=== PATIENT | male | born 1965 | race Caucasian/White ===

== ENCOUNTER 2018-07-25 11:01 | Emergency (ER) | payer BC, OTHER ==
--- NOTE | 2018-07-25 11:20 | EDM.PDOC ---
ED HPI GENERAL MEDICAL PROBLEM - General Stated Complaint: SWOLLEN NOSE AND EYE Time Seen by Provider: 07/25/18 11:01 Source of Information: Reports: Patient History Limitations: Reports: No Limitations - History of Present Illness INITIAL COMMENTS - FREE TEXT/NARRATIVE: 53 y.o.w.m came to the ed because he felt some swelling and pain ant his right nose and left and right forehead. No trauma. Pt stated, he noticed swelling of her right nose as well. No nasal congestion. No F/C no no N/V/D or dizziness. Pt feels sinus pressure. No other acute medical issues. LAKEISHA 151/107 RR 20 Pulse ox 97% 0n RA Temp 36.8 Pulse 82 Onset Date: 07/24/18 Onset Time: 08:00 Duration: Day(s):, Getting Worse, Intermittent Location: Reports: Face Quality: Reports: Ache, Dull, Pressure Severity: Mild Improves with: Reports: Rest Worsens with: Reports: Movement Context: Reports: Sick Contact Associated Symptoms: Reports: No Other Symptoms head Pain Score (Numeric/FACES): 6 - Related Data Allergies Allergy/AdvReac Type Severity Reaction Status Date / Time No Known Allergies Allergy Verified 07/27/15 14:22 Home Meds: Home Meds Acetaminophen [Pain Reliever] 1,000 mg PO ASDIRECTED PRN 01/09/15 [History] Allopurinol [Zyloprim] 100 mg PO DAILY 01/09/15 [History] Pantoprazole [ProTONIX] 40 mg PO BID 01/09/15 [History] Metoclopramide HCl [Reglan] 10 mg PO TIDMEALS #30 tablet 09/05/15 [Rx] NIFEdipine 20 mg PO DAILY #30 cap 09/05/15 [Rx] Amoxicillin/Potassium Clav [Augmentin 875-125 Tablet] 1 each PO BID #20 tablet 07/25/18 [Rx] Lisinopril 0 mg PO DAILY 07/25/18 [History] Past Medical History Other Gastrointestinal History: NEEDS GALLBLADDER OUT ED ROS ENT - Review of Systems Review Of Systems: See Below Constitutional: Reports: No Symptoms HEENT: Reports: Sinus Problem Respiratory: Reports: No Symptoms Cardiovascular: Reports: No Symptoms Endocrine: Reports: No Symptoms GI/Abdominal: Reports: No Symptoms : Reports: No Symptoms Musculoskeletal: Reports: No Symptoms Skin: Reports: No Symptoms Neurological: Reports: No Symptoms Psychiatric: Reports: No Symptoms Hematologic/Lymphatic: Reports: No Symptoms Immunologic: Reports: No Symptoms ED EXAM, ENT - Physical Exam Exam: See Below Exam Limited By: No Limitations General Appearance: Alert, WD/WN, Mild Distress Eye Exam: Bilateral Eye: Normal Inspection Ears: Normal External Exam, Normal Canal, Normal TMs Nose: Normal Inspection, Normal Mucousa, No Blood Mouth/Throat: Normal Gums, Normal Lips, Normal Oropharynx Head: Atraumatic, Normocephalic Neck: Normal Inspection, Supple, Non-Tender, Full Range of Motion Respiratory/Chest: No Respiratory Distress, Lungs Clear, Normal Breath Sounds, No Accessory Muscle Use, Chest Non-Tender Cardiovascular: Normal Peripheral Pulses, Regular Rate, Rhythm, No Edema, No Gallop, No JVD, No Murmur, No Rub GI/Abdominal: Normal Bowel Sounds, Soft, Non-Tender, No Organomegaly (Male) Exam: Deferred Rectal (Males) Exam: Deferred Back: Normal Inspection, Full Range of Motion Extremities: Normal Inspection, Normal Range of Motion, Non-Tender, No Pedal Edema, Normal Capillary Refill Neurological: Alert, Oriented, CN II-XII Intact Psychiatric: Normal Affect, Normal Mood Skin: Warm, Dry, Intact Lymphatic: No Adenopathy Course - Vital Signs Text/Narrative:: 53 y.o.w.m came to the ed because he felt some swelling and pain ant his right nose and left and right forehead. No trauma. Pt stated, he noticed swelling of her right nose as well. No nasal congestion. No F/C no no N/V/D or dizziness. Pt feels sinus pressure. No other acute medical issues. LAKEISHA 151/107 RR 20 Pulse ox 97% 0n RA Temp 36.8 Pulse 82 PE: 53 y.o.w.m with right facial swelling. Imaging: max facial: No Sinusitis Impression: Facial cellulitis Tx: Abx as a prescription Reexam: Improved Plan: D/C with instructions Last Recorded V/S: Last Vital Signs Temp 36.7 C 07/25/18 12:33 Pulse 70 07/25/18 12:33 Resp 20 07/25/18 12:33 BP 154/89 H 07/25/18 12:33 Pulse Ox 97 07/25/18 12:33 - Orders/Labs/Meds Orders: Active Orders 24 hr Category Date Time Status Max Facial Sinus wo Cont [CT] Stat Exams 07/25/18 11:14 Taken Departure - Departure Time of Disposition: 12:19 Disposition: Home, Self-Care 01 Condition: Good Clinical Impression: Cellulitis of face - Discharge Information Prescriptions: Amoxicillin/Potassium Clav [Augmentin 875-125 Tablet] 1 each PO BID #20 tablet Instructions: Amoxicillin; Clavulanic Acid tablets, Cellulitis, Adult Referrals: Kunal Goetz MD [Primary Care Provider] - Forms: ED Department Discharge Additional Instructions: Please tale Augmentin as recommended, please take tylenol/Motrin for pain, please f/u, come back if your symptoms get worse acutely - My Orders Last 24 Hours: My Active Orders 07/25/18 11:14 Max Facial Sinus wo Cont [CT] Stat - Assessment/Plan Last 24 Hours: My Active Orders 07/25/18 11:14 Max Facial Sinus wo Cont [CT] Stat
[2018-07-25 14:25] VITALS: BP 154/89
== END 2018-07-25 12:33 | disposition home or self-care (01) ==
LOC: FB.ED 11:01
DX: L03.211 Cellulitis of face (principal); Z79.899 Other long term (current) drug therapy
CPT/HCPCS: 70486; 99283

== ENCOUNTER 2019-05-08 09:57 | Emergency (ER) | payer BC, OTHER ==
[2019-05-08] MEDS ORDERED: Pantoprazole 40 MG Vial IVPUSH ONE (10:23)
[2019-05-08] MEDS ORDERED: Ondansetron 4 MG/2 ML SDV IVPUSH ONE (10:23)
[2019-05-08] MEDS ORDERED: Sodium Chloride 0.9% 1,000 ML IV ONE ×2 (10:23→11:41)
--- NOTE | 2019-05-08 10:27 | EDM.PDOC ---
ED HPI GENERAL MEDICAL PROBLEM - General Stated Complaint: VOMITTING DEHYDRATED Time Seen by Provider: 05/08/19 10:13 Source of Information: Reports: Patient History Limitations: Reports: No Limitations - History of Present Illness INITIAL COMMENTS - FREE TEXT/NARRATIVE: 54 y.o.w.m with a H/O chronic vomiting came to the ED due to vomiting in the past 2 days. Pt had an upper Endoscopy study a few years ago. Pt c/o gen abd discomfort, no pain. He takes omeprazole. Pt denies food poisoning. Pt was not able to keep water or even ice chips down. No SOB, No CP or any other acute med issues. BP 168/85 RR 22 Pulse ox 98% on RA Pulse 65 Temp 36.8 Onset Date: 05/06/19 Onset Time: 08:00 Duration: Day(s):, Getting Worse, Intermittent Location: Reports: Abdomen Quality: Reports: Burning Severity: Moderate Improves with: Reports: None Worsens with: Reports: Eating Context: Reports: Other Associated Symptoms: Reports: No Other Symptoms Headache Pain Score (Numeric/FACES): 7 abdomen Pain Score (Numeric/FACES): 7 - Related Data Allergies Allergy/AdvReac Type Severity Reaction Status Date / Time No Known Allergies Allergy Verified 05/08/19 10:07 Home Meds: Home Meds Allopurinol [Zyloprim] 100 mg PO DAILY 05/08/19 [History] Indomethacin 50 mg PO DAILY PRN 05/08/19 [History] Lisinopril/Hydrochlorothiazide [Lisinopril-Hctz 20-25 mg Tab] 1 each PO DAILY [History] Omeprazole 20 mg PO DAILY 05/08/19 [History] Ondansetron [Zofran ODT] 4 mg PO Q6H PRN #14 tab.dis 05/08/19 [Rx] Past Medical History Cardiovascular History: Reports: Hypertension Other Gastrointestinal History: NEEDS GALLBLADDER OUT Social & Family History - Family History Family Medical History: Noncontributory - Caffeine Use Caffeine Use: Reports: None ED ROS GENERAL - Review of Systems Review Of Systems: See Below Constitutional: Reports: No Symptoms HEENT: Reports: No Symptoms Respiratory: Reports: No Symptoms Cardiovascular: Reports: No Symptoms Endocrine: Reports: No Symptoms GI/Abdominal: Reports: Abdominal Pain (abd. discomfort) : Reports: No Symptoms Musculoskeletal: Reports: No Symptoms Skin: Reports: No Symptoms Neurological: Reports: No Symptoms Psychiatric: Reports: No Symptoms Hematologic/Lymphatic: Reports: No Symptoms Immunologic: Reports: No Symptoms ED EXAM, GI/ABD - Physical Exam Exam: See Below Exam Limited By: No Limitations General Appearance: Alert, WD/WN, Moderate Distress Eyes: Bilateral: Normal Appearance Ears: Normal External Exam Nose: Normal Inspection Throat/Mouth: Normal Lips, Normal Voice, No Airway Compromise, Other (dry mucosal membranes) Head: Atraumatic, Normocephalic Neck: Normal Inspection, Supple, Non-Tender, Full Range of Motion Respiratory/Chest: No Respiratory Distress, Lungs Clear, Normal Breath Sounds, Chest Non-Tender Cardiovascular: Normal Peripheral Pulses, Regular Rate, Rhythm, No Edema, No Gallop, No JVD, No Murmur GI/Abdominal Exam: Normal Bowel Sounds, Tender (epigatsric) (Male) Exam: Deferred Rectal (Males) Exam: Deferred Back Exam: Normal Inspection, Full Range of Motion Extremities: Normal Inspection, Normal Range of Motion, Non-Tender Neurological: Alert, Oriented, CN II-XII Intact, Normal Cognition, Normal Gait Psychiatric: Normal Affect, Normal Mood Skin Exam: Warm, Dry, Intact, Normal Color, No Rash Lymphatic: No Adenopathy Course - Vital Signs Text/Narrative:: 54 y.o.w.m with a H/O chronic vomiting came to the ED due to vomiting in the past 2 days. Pt had an upper Endoscopy study a few years ago. Pt c/o gen abd discomfort, no pain. He takes omeprazole. Pt denies food poisoning. Pt was not able to keep water or even ice chips down. No SOB, No CP or any other acute med issues. BP 168/85 RR 22 Pulse ox 98% on RA Pulse 65 Temp 36.8 PE: WNWD W M with N/V Labs: CBC nl BMP NL potassium was 3.5 Impression: Cyclic vs chronic Vomiting Tx: Zofran, NS, Protonix Reexam: Improved Plan: D/C with instructions Last Recorded V/S: Last Vital Signs Temp 36.6 C 05/08/19 13:45 Pulse 65 05/08/19 13:45 Resp 16 05/08/19 13:45 BP 145/70 H 05/08/19 13:45 Pulse Ox 98 05/08/19 13:45 - Orders/Labs/Meds Labs: Laboratory Tests 05/08/19 05/08/19 05/08/19 Range/Units 10:32 10:32 11:40 WBC 7.3 (4.5-12.0) X10-3/uL RBC 5.09 (4.30-5.75) x10(6)uL Hgb 15.8 (13.5-17.8) g/dL Hct 44.9 (30.0-51.3) % MCV 88.2 (80-96) fL MCH 31.0 (27.7-33.6) pg MCHC 35.1 (32.2-35.4) g/dL RDW 11.5 (11.5-15.5) % Plt Count 255 (125-369) X10(3)uL MPV 9.7 (7.4-10.4) fL Neut % (Auto) 56.1 (46-82) % Lymph % (Auto) 32.1 (13-37) % [place] % (Auto) 11.0 (4-12) % Eos % (Auto) 0 L (1.0-5.0) % Baso % (Auto) 1 (0-2) % Neut # (Auto) 4.1 (1.6-8.3) # Lymph # (Auto) 2.4 (0.6-5.0) # [place] # (Auto) 0.8 (0.0-1.3) # Eos # (Auto) 0.0 (0.0-0.8) # Baso # (Auto) 0.0 (0.0-0.2) # Sodium 143 (135-145) mmol/L Potassium 3.5 (3.5-5.3) mmol/L Chloride 105 (100-110) mmol/L Carbon Dioxide 31 (21-32) mmol/L BUN 14 (7-18) mg/dL Creatinine 1.0 (0.70-1.30) mg/dL Est Cr Clr Drug Dosing 89.22 mL/min Estimated GFR (MDRD) > 60 (>60) BUN/Creatinine Ratio 14.0 (9-20) Glucose 121 H (80-116) mg/dL Calcium 9.6 (8.6-10.2) mg/dL Total Bilirubin 1.2 (0.1-1.3) mg/dL Direct Bilirubin 0.30 H (0.10-0.20) mg/dL AST 37 H (5-25) IU/L ALT 66 H (12-36) U/L Alkaline Phosphatase 69 (56-112) IU/L Total Protein 7.8 (6.0-8.0) g/dL Albumin 4.1 (3.5-5.2) g/dL Amylase 35 (25-115) U/L Urine Color Yellow (YELLOW) Urine Appearance Clear (CLEAR) Urine pH 5.0 (5.0-6.5) Ur Specific [place] 1.025 (1.010-1.025) Urine Protein Trace (NEGATIVE) mg/dL Urine Glucose (UA) Normal (NORMAL) mg/dL Urine Ketones 15 H (NEGATIVE) mg/dL Urine Occult Blood Negative (NEGATIVE) Urine Nitrite Negative (NEGATIVE) Urine Bilirubin Small H (NEGATIVE) Urine Urobilinogen 4 H (NEGATIVE) mg/dL Ur Leukocyte Esterase Negative (NEGATIVE) Urine RBC 0-5 (0-5) Urine WBC 0-5 (0-5) Ur Squamous Epith Cells Occasional (NS,R,O) Urine Bacteria Moderate H (NS) Urine Mucus Many H (NS) Meds: Medications Discontinued Medications Generic Name Dose Route Start Last Admin Trade Name Freq PRN Reason Stop Dose Admin Sodium Chloride 1,000 mls @ 999 mls/hr 05/08/19 10:23 05/08/19 10:35 Normal Saline IV 05/08/19 11:23 999 mls/hr .BOLUS ONE Administration Promethazine HCl 12.5 mg/ 50.5 mls @ 200 mls/hr 05/08/19 11:39 05/08/19 12:05 Sodium Chloride IV 05/08/19 11:54 200 mls/hr ONETIME STA Administration Sodium Chloride 1,000 mls @ 999 mls/hr 05/08/19 11:41 05/08/19 11:40 Normal Saline IV 05/08/19 12:41 999 mls/hr .BOLUS ONE Administration Ondansetron HCl 8 mg 05/08/19 10:23 05/08/19 10:43 Zofran IVPUSH 05/08/19 10:24 8 mg ONETIME ONE Administration Pantoprazole Sodium 40 mg 05/08/19 10:23 05/08/19 10:44 Protonix Iv IVPUSH 05/08/19 10:24 40 mg ONETIME ONE Administration Departure - Departure Time of Disposition: 13:38 Disposition: Home, Self-Care 01 Condition: Good Clinical Impression: Dehydration Vomiting alone Qualifiers: Vomiting type: unspecified Vomiting Intractability: non-intractable Qualified Code(s): R11.11 - Vomiting without nausea - Discharge Information Prescriptions: Ondansetron [Zofran ODT] 4 mg PO Q6H PRN #14 tab.dis PRN Reason: Nausea Instructions: Nausea and Vomiting, Adult Referrals: Kunal Goetz MD [Primary Care Provider] - Forms: ED Department Discharge Additional Instructions: Please advance diet as tolerated. Please increase water intake, please take Zofran and cont your Omeprazole. Please F/U with your PMD/GI specialist, come back if your symptoms get worse acutely
[2019-05-08] MEDS ORDERED: Promethazine 12.5 MG in Sodium Chloride 0.9% 50 ML IV STA (11:39)
[2019-05-08 14:01] VITALS: BP 145/70
== END 2019-05-08 13:50 | disposition home or self-care (01) ==
LOC: FB.ED 09:57
DX: E86.0 Dehydration (principal); R11.11 Vomiting without nausea; I10 Essential (primary) hypertension; Z79.899 Other long term (current) drug therapy
CPT/HCPCS: 36415; 80048; 80076; 81001; 82150; 85025; 96361; 96374; 96375; 99284; C9113; J2405; J2550; J7030; J7050

== ENCOUNTER 2019-05-09 15:01 | Observation (INO) | payer BC ==
[2019-05-09] MEDS ORDERED: Sodium Chloride 0.9% 10 ML Syringe FLUSH PRN (16:08)
[2019-05-09] MEDS ORDERED: Ondansetron 4 MG/2 ML SDV IV PRN (16:08)
[2019-05-09] MEDS ORDERED: Enoxaparin 40 MG/0.4 ML Syringe SUBCUT SCH (16:15)
[2019-05-09] MEDS ORDERED: Sodium Chloride 0.9% 1,000 ML IV SCH (16:15)
--- NOTE | 2019-05-09 16:39 | PCM.HP ---
<Dulce Lehman - Last Filed: 05/09/19 16:34> H&P History of Present Illness - General Date of Service: 05/09/19 Admit Problem/Dx: Admission Diagnosis/Problem Admission Diagnosis/Problem Dehydration - History of Present Illness Initial Comments - Free Text/Narative: 54 year old male presents to the hospital for direct admission following vomiting. He reports that two weeks ago he woke up in the morning and had some vomiting. He had been drinking vodka the night before so he attributed the vomiting to this. It resolved by noon and he was able to eat and drink normally afterwards. This past Thursday (05/07/19) he again woke up and became vomiting whenever he tried to eat or drink anything. He had some alcoholic beverages the night before so thought it was related to that again. However, he has been unable to keep any food or liquids down since that time. He reports that even if he drinks water, he feels like everything goes down normally, but that he is unable to keep it in and immediately vomits it out. He does note that this has happened in the past. He was evaluated by surgery last time and had a aditi fundoplication in October 2015. This resolved his symptoms until two weeks ago. Onset of Symptoms: Reports: Sudden Symptom Onset Date: 05/07/19 Duration of Symptoms: Reports: Day(s): (3), Constant Location: Reports: Abdomen Front/Back Full Body Diagram: 1 - pain Quality: Reports: Pressure Severity: Moderate Improves with: Reports: Other (not eating or drinking) Worsens with: Reports: Eating Associated Symptoms: Reports: Nausea/Vomiting (with PO intake only). Denies: Chest Pain, Cough, Fever/Chills, Rash, Shortness of Breath, Weakness Headache Pain Score (Numeric/FACES): 6 - Related Data Allergies/Adverse Reactions: Allergies Allergy/AdvReac Type Severity Reaction Status Date / Time No Known Allergies Allergy Verified 05/09/19 16:34 Home Medications: Home Meds Allopurinol [Zyloprim] 100 mg PO DAILY 05/08/19 [History] Indomethacin 50 mg PO TID PRN 05/08/19 [History] Lisinopril/Hydrochlorothiazide [Lisinopril-Hctz 20-25 mg Tab] 1 each PO DAILY [History] Omeprazole 20 mg PO BID 05/08/19 [History] Ondansetron [Zofran ODT] 4 mg PO Q6H PRN #14 tab.dis 05/08/19 [Rx] Acetaminophen [Tylenol Extra Strength] 1,000 mg PO Q4HR PRN 05/09/19 [History] Past Medical History HEENT History: Reports: Impaired Vision, Other (See Below) Other HEENT History: wears reading glasses Cardiovascular History: Reports: Hypertension Other Gastrointestinal History: NEEDS GALLBLADDER OUT Musculoskeletal History: Reports: Arthritis, Back Pain, Chronic, Gout - Infectious Disease History Infectious Disease History: Reports: Chicken Pox, Mumps - Past Surgical History GI Surgical History: Reports: Cholecystectomy Musculoskeletal Surgical History: Reports: Arthroscopic Knee Social & Family History - Family History Family Medical History: Noncontributory - Tobacco Use Smoking Status *Q: Never Smoker Second Hand Smoke Exposure: No - Caffeine Use Caffeine Use: Reports: Soda - Alcohol Use Days Per Week of Alcohol Use: 3 Number of Drinks Per Day: 4 Total Drinks Per Week: 12 Date of Last Drink: 05/04/19 Time of Last Drink: 18:00 - Recreational Drug Use Recreational Drug Use: No H&P Review of Systems - Review of Systems: Review Of Systems: See Below General: Reports: Fatigue, Decreased Appetite, Weight Loss. Denies: Fever, Chills, Weakness HEENT: Reports: No Symptoms Pulmonary: Denies: Shortness of Breath, Cough Cardiovascular: Denies: Chest Pain, Palpitations Gastrointestinal: Reports: Abdominal Pain (epi-gastric) Genitourinary: Denies: Hematuria Musculoskeletal: Denies: No Symptoms Skin: Denies: No Symptoms Psychiatric: Denies: No Symptoms Neurological: Denies: No Symptoms Hematologic/Lymphatic: Denies: No Symptoms Exam - Exam Exam: See Below - Vital Signs Vital Signs: Last Vital Signs Temp 37.0 C 05/09/19 15:05 Pulse 67 05/09/19 15:05 Resp 18 05/09/19 15:05 BP 173/84 H 05/09/19 15:05 Pulse Ox 96 05/09/19 15:05 Weight: 253 lb - Exam General: Alert, Oriented, Cooperative HEENT: Hearing Intact Neck: Supple, Trachea Midline Lungs: Clear to Auscultation, Normal Respiratory Effort Cardiovascular: Regular Rate, Regular Rhythm GI/Abdominal Exam: Normal Bowel Sounds, Soft, No Mass, Tender ([id number]) Back Exam: Normal Inspection Extremities: No Pedal Edema Skin: Warm, Dry, Intact Neuro Extensive - Mental Status: Alert, Oriented x3, Normal Mood/Affect Psychiatric: Alert, Normal Affect, Normal Mood - Problem List (1) Dehydration SNOMED Code(s): 13753195 ICD Code: E86.0 - DEHYDRATION Status: Acute (2) Chronic vomiting SNOMED Code(s): 61492100 ICD Code: R11.10 - VOMITING, UNSPECIFIED Status: Acute (3) Weight loss, non-intentional SNOMED Code(s): 185002387 ICD Code: R63.4 - ABNORMAL WEIGHT LOSS Status: Acute (4) Vomiting alone SNOMED Code(s): 607772881872497 ICD Code: R11.11 - VOMITING WITHOUT NAUSEA Status: Acute Qualifiers: Vomiting type: unspecified Vomiting Intractability: non-intractable Qualified Code(s): R11.11 - Vomiting without nausea Problem List Initiated/Reviewed/Updated: Yes Orders Last 24hrs: Active Orders 24 hr Category Date Time Status Patient Status [ADT] Routine ADT 05/09/19 16:08 Active Oxygen Therapy [RC] PRN Care 05/09/19 16:08 Active Up ad Anneliese [RC] ASDIRECTED Care 05/09/19 16:08 Active VTE/DVT Education [RC] Per Unit Routine Care 05/09/19 16:08 Active Vital Signs [RC] Q4H Care 05/09/19 16:08 Active Nothing per Oral Now Diet [DIET] Diet 05/09/19 Dinner Active CBC WITH AUTO DIFF [HEME] Routine Lab 05/09/19 16:08 Ordered COMPREHENSIVE METABOLIC PN,CMP [CHEM] Routine Lab 05/09/19 16:08 Ordered Enoxaparin [Lovenox] Med 05/09/19 16:15 Active 40 mg SUBCUT Q24H Ondansetron [Zofran] Med 05/09/19 16:08 Active 4 mg IV Q4H PRN Sodium Chloride 0.9% [Normal Saline] 1,000 ml Med 05/09/19 16:15 Active IV ASDIRECTED Sodium Chloride 0.9% [Saline Flush] Med 05/09/19 16:08 Active 10 ml FLUSH ASDIRECTED PRN Peripheral IV Insertion Adult [OM.PC] Routine Oth 05/09/19 16:08 Ordered Sequential Compression Device [OM.PC] Per Unit Routine Oth 05/09/19 16:09 Ordered Resuscitation Status Routine Resus Stat 05/09/19 16:08 Ordered Medication Orders Enoxaparin Sodium (Lovenox) 40 mg SUBCUT Q24H MEGHA Sodium Chloride (Normal Saline) 1,000 mls @ 150 mls/hr IV ASDIRECTED MEGHA Ondansetron HCl (Zofran) 4 mg IV Q4H PRN PRN Reason: Nausea/Vomiting Sodium Chloride (Saline Flush) 10 ml FLUSH ASDIRECTED PRN PRN Reason: Keep Vein Open Assessment/Plan Comment:: 1. Observation status 2. NPO 3. IVF - NS @ 150 cc/hr 4. Esophagram with Gastrografin 5. Up ad anneliese 6. CBC and CMP now 7. Consult Dr. Weinberg 8. DVT prophylaxis with Lovenox and SCDs <Carlos Archuleta - Last Filed: 05/09/19 17:35> H&P History of Present Illness - General Admit Problem/Dx: Admission Diagnosis/Problem Admission Diagnosis/Problem Dehydration Exam - Vital Signs Vital Signs: Last Vital Signs Temp 98.6 F 05/09/19 16:08 Pulse 67 05/09/19 16:08 Resp 18 05/09/19 16:08 BP 173/84 H 05/09/19 16:08 Pulse Ox 97 05/09/19 16:08 - Patient Data Lab Results Last 24 hrs: Laboratory Results - last 24 hr 05/09/19 05/09/19 Range/Units 16:37 16:37 WBC 9.6 (4.5-12.0) X10-3/uL RBC 4.74 (4.30-5.75) x10(6)uL Hgb 13.9 (13.5-17.8) g/dL Hct 41.7 (30.0-51.3) % MCV 87.9 (80-96) fL MCH 29.3 (27.7-33.6) pg MCHC 33.3 (32.2-35.4) g/dL RDW 11.5 (11.5-15.5) % Plt Count 234 (125-369) X10(3)uL MPV 9.3 (7.4-10.4) fL Neut % (Auto) 66.2 (46-82) % Lymph % (Auto) 24.1 (13-37) % [place] % (Auto) 9.0 (4-12) % Eos % (Auto) 0 L (1.0-5.0) % Baso % (Auto) 1 (0-2) % Neut # (Auto) 6.4 (1.6-8.3) # Lymph # (Auto) 2.3 (0.6-5.0) # [place] # (Auto) 0.9 (0.0-1.3) # Eos # (Auto) 0.0 (0.0-0.8) # Baso # (Auto) 0.0 (0.0-0.2) # Sodium 145 (135-145) mmol/L Potassium 3.3 L (3.5-5.3) mmol/L Chloride 106 (100-110) mmol/L Carbon Dioxide 28 (21-32) mmol/L BUN 13 (7-18) mg/dL Creatinine 1.0 (0.70-1.30) mg/dL Est Cr Clr Drug Dosing 89.22 mL/min Estimated GFR (MDRD) > 60 (>60) BUN/Creatinine Ratio 13.0 (9-20) Glucose 103 (80-116) mg/dL Calcium 9.1 (8.6-10.2) mg/dL Total Bilirubin 0.9 (0.1-1.3) mg/dL AST 30 H D (5-25) IU/L ALT 55 H D (12-36) U/L Alkaline Phosphatase 60 (56-112) IU/L Total Protein 7.4 (6.0-8.0) g/dL Albumin 3.8 (3.5-5.2) g/dL Globulin 3.6 g/dL Albumin/Globulin Ratio 1.1 Result Diagrams: 05/09/19 16:37 05/09/19 16:37 Orders Last 24hrs: Active Orders 24 hr Category Date Time Status Patient Status [ADT] Routine ADT 05/09/19 16:08 Active Notify Provider Consults [RC] ASDIRECTED Care 05/09/19 17:19 Active Oxygen Therapy [RC] PRN Care 05/09/19 16:08 Active Up ad Anneliese [RC] ASDIRECTED Care 05/09/19 16:08 Active VTE/DVT Education [RC] Per Unit Routine Care 05/09/19 16:08 Active Vital Signs [RC] Q4H Care 05/09/19 16:08 Active Consult to Physician [CONS] Routine Cons 05/09/19 17:18 Ordered Nothing per Oral Now Diet [DIET] Diet 05/09/19 Dinner Active Enoxaparin [Lovenox] Med 05/09/19 16:15 Active 40 mg SUBCUT Q24H Labetalol [Normodyne] Med 05/09/19 17:31 Ordered 10 mg IVPUSH Q4H PRN Ondansetron [Zofran] Med 05/09/19 16:08 Active 4 mg IV Q4H PRN Sodium Chloride 0.9% [Normal Saline] 1,000 ml Med 05/09/19 16:15 Active IV ASDIRECTED Sodium Chloride 0.9% [Saline Flush] Med 05/09/19 16:08 Active 10 ml FLUSH ASDIRECTED PRN Peripheral IV Insertion Adult [OM.PC] Routine Oth 05/09/19 16:08 Ordered Sequential Compression Device [OM.PC] Per Unit Routine Oth 05/09/19 16:09 Ordered Resuscitation Status Routine Resus Stat 05/09/19 16:08 Ordered Medication Orders Enoxaparin Sodium (Lovenox) 40 mg SUBCUT Q24H MEGHA Last Admin: 05/09/19 17:14 Dose: 40 mg Sodium Chloride (Normal Saline) 1,000 mls @ 150 mls/hr IV ASDIRECTED MEGHA Last Admin: 05/09/19 16:56 Dose: 150 mls/hr Labetalol HCl (Normodyne) 10 mg IVPUSH Q4H PRN; Protocol PRN Reason: Hypertension Ondansetron HCl (Zofran) 4 mg IV Q4H PRN PRN Reason: Nausea/Vomiting Sodium Chloride (Saline Flush) 10 ml FLUSH ASDIRECTED PRN PRN Reason: Keep Vein Open Last Admin: 05/09/19 16:54 Dose: 10 ml Assessment/Plan Comment:: Reviewed the note and saw the patient and examined the patient. Agree and attest to this note.
[2019-05-09] MEDS ORDERED: Sodium Chloride 0.9% 1,000 ML IV ONE (17:37)
[2019-05-09] MEDS: Labetalol 100 MG/20 ML MDV IVPUSH PRN (18:12)
[2019-05-09] MEDS: NS + KCl 20mEq/L 1,000 ML IV SCH (19:49)
[2019-05-10] MEDS: NS + KCl 20mEq/L 1,000 ML IV SCH (02:36)
[2019-05-10] MEDS ORDERED: Lactated Ringers 1,000 ML IV ONE (07:31)
--- NOTE | 2019-05-10 07:37 | PCM.CONS ---
H&P History of Present Illness - General Date of Service: 05/10/19 Admit Problem/Dx: Admission Diagnosis/Problem Admission Diagnosis/Problem Dehydration Source of Information: Patient, Old Records - History of Present Illness Initial Comments - Free Text/Narative: 54 yo wm who developed some emesis over the weekend. Unable to keep fluids and solids down. Was seen in the ED and given fluids and admitted after being seen in the clinic. He has a hx of achalasia and has had a Heller myotomy as well as a Janel fundoplication approx 3.5 yrs ago in [place]. This was done for similar sx. Did well until this past week end. Denies fever, chills. He is able to handle his saliva. No exacerbating or relieving factors. Headache Pain Score (Numeric/FACES): 3 - Related Data Allergies/Adverse Reactions: Allergies Allergy/AdvReac Type Severity Reaction Status Date / Time No Known Allergies Allergy Verified 05/09/19 16:34 Home Medications: Home Meds Allopurinol [Zyloprim] 100 mg PO DAILY 05/08/19 [History] Indomethacin 50 mg PO TID PRN 05/08/19 [History] Lisinopril/Hydrochlorothiazide [Lisinopril-Hctz 20-25 mg Tab] 1 each PO DAILY [History] Omeprazole 20 mg PO BID 05/08/19 [History] Ondansetron [Zofran ODT] 4 mg PO Q6H PRN #14 tab.dis 05/08/19 [Rx] Acetaminophen [Tylenol Extra Strength] 1,000 mg PO Q4HR PRN 05/09/19 [History] Past Medical History HEENT History: Reports: Impaired Vision, Other (See Below) Other HEENT History: wears reading glasses Cardiovascular History: Reports: Hypertension Other Gastrointestinal History: NEEDS GALLBLADDER OUT Musculoskeletal History: Reports: Arthritis, Back Pain, Chronic, Gout - Infectious Disease History Infectious Disease History: Reports: Chicken Pox, Mumps - Past Surgical History GI Surgical History: Reports: Cholecystectomy Musculoskeletal Surgical History: Reports: Arthroscopic Knee Social & Family History - Family History Family Medical History: Noncontributory - Tobacco Use Smoking Status *Q: Never Smoker Second Hand Smoke Exposure: No - Caffeine Use Caffeine Use: Reports: Soda - Alcohol Use Days Per Week of Alcohol Use: 3 Number of Drinks Per Day: 4 Total Drinks Per Week: 12 Date of Last Drink: 05/04/19 Time of Last Drink: 18:00 - Recreational Drug Use Recreational Drug Use: No H&P Review of Systems - Review of Systems: Review Of Systems: See Below General: Reports: No Symptoms HEENT: Reports: No Symptoms Pulmonary: Reports: No Symptoms Cardiovascular: Reports: No Symptoms Gastrointestinal: Reports: Vomiting. Denies: Abdominal Pain Genitourinary: Reports: Other (dark urine) Exam - Exam Exam: See Below - Vital Signs Vital Signs: Last Vital Signs Temp 98 F 05/10/19 05:24 Pulse 67 05/10/19 05:24 Resp 16 05/10/19 05:24 BP 158/84 H 05/10/19 05:24 Pulse Ox 96 05/10/19 05:24 Weight: 114.759 kg - Exam General: Alert, Oriented. No: Mild Distress Lungs: Clear to Auscultation, Normal Respiratory Effort Cardiovascular: Regular Rate, Regular Rhythm GI/Abdominal Exam: Normal Bowel Sounds, Soft, Non-Tender - Patient Data Lab Results Last 24 hrs: Laboratory Results - last 24 hr 05/09/19 05/09/19 Range/Units 16:37 16:37 WBC 9.6 (4.5-12.0) X10-3/uL RBC 4.74 (4.30-5.75) x10(6)uL Hgb 13.9 (13.5-17.8) g/dL Hct 41.7 (30.0-51.3) % MCV 87.9 (80-96) fL MCH 29.3 (27.7-33.6) pg MCHC 33.3 (32.2-35.4) g/dL RDW 11.5 (11.5-15.5) % Plt Count 234 (125-369) X10(3)uL MPV 9.3 (7.4-10.4) fL Neut % (Auto) 66.2 (46-82) % Lymph % (Auto) 24.1 (13-37) % [place] % (Auto) 9.0 (4-12) % Eos % (Auto) 0 L (1.0-5.0) % Baso % (Auto) 1 (0-2) % Neut # (Auto) 6.4 (1.6-8.3) # Lymph # (Auto) 2.3 (0.6-5.0) # [place] # (Auto) 0.9 (0.0-1.3) # Eos # (Auto) 0.0 (0.0-0.8) # Baso # (Auto) 0.0 (0.0-0.2) # Sodium 145 (135-145) mmol/L Potassium 3.3 L (3.5-5.3) mmol/L Chloride 106 (100-110) mmol/L Carbon Dioxide 28 (21-32) mmol/L BUN 13 (7-18) mg/dL Creatinine 1.0 (0.70-1.30) mg/dL Est Cr Clr Drug Dosing 89.22 mL/min Estimated GFR (MDRD) > 60 (>60) BUN/Creatinine Ratio 13.0 (9-20) Glucose 103 (80-116) mg/dL Calcium 9.1 (8.6-10.2) mg/dL Total Bilirubin 0.9 (0.1-1.3) mg/dL AST 30 H D (5-25) IU/L ALT 55 H D (12-36) U/L Alkaline Phosphatase 60 (56-112) IU/L Total Protein 7.4 (6.0-8.0) g/dL Albumin 3.8 (3.5-5.2) g/dL Globulin 3.6 g/dL Albumin/Globulin Ratio 1.1 Result Diagrams: 05/09/19 16:37 05/09/19 16:37 Consult PN Assessment/Plan Procedures: Procedures ASSAY OF AMYLASE (07/23/15) ASSAY OF MAGNESIUM (09/04/15) ASSAY OF PHOSPHORUS (09/04/15) COMPLETE CBC AUTOMATED (07/23/15) COMPLETE CBC W/AUTO DIFF WBC (09/04/15) COMPREHEN METABOLIC PANEL (09/04/15) CONTRAST X-RAY ESOPHAGUS (04/30/15) CT MAXILLOFACIAL W/O DYE (07/25/18) EGD BIOPSY SINGLE/MULTIPLE (01/10/15) EGD DIAGNOSTIC BRUSH WASH (05/15/15) EGD GUIDE WIRE INSERTION (05/08/15) EMERGENCY DEPT VISIT (07/25/18) EMERGENCY DEPT VISIT (07/27/15) EMERGENCY DEPT VISIT (07/23/15) EMERGENCY DEPT VISIT (07/23/15) EMERGENCY DEPT VISIT (07/11/15) EMERGENCY DEPT VISIT (07/11/15) HEPATIC FUNCTION PANEL (07/23/15) HEPATOBIL SYST IMAGE W/DRUG (06/26/15) HYDRATE IV INFUSION ADD-ON (09/04/15) HYDRATION IV INFUSION INIT (07/11/15) IMMUNOHISTO ANTB 1ST STAIN (01/10/15) METABOLIC PANEL TOTAL CA (07/23/15) ROUTINE VENIPUNCTURE (09/04/15) THER/PROPH/DIAG INJ IV PUSH (09/04/15) THER/PROPH/DIAG IV INF INIT (07/23/15) TISSUE EXAM BY PATHOLOGIST (01/10/15) TX/PRO/DX INJ NEW DRUG ADDON (07/23/15) TX/PRO/DX INJ SAME DRUG 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 would recommend CT scan to eval to see if anything has slipped. will follow with you.
--- NOTE | 2019-05-10 08:22 | PCM.PN ---
<Dulce Lehman - Last Filed: 05/10/19 08:17> - General Info Date of Service: 05/10/19 Admission Dx/Problem (Free Text): Patient doing well, does have a headache this morning and complains of being hungry. He remains NPO, no episodes of nausea or vomiting since admission. No acute events overnight. Functional Status: Reports: Pain Controlled, Ambulating. Denies: New Symptoms - Review of Systems General: Denies: Fever, Weakness, Night Sweats HEENT: Reports: Headaches (frontal, better with cold cloth). Denies: Visual Changes Pulmonary: Denies: Shortness of Breath, Cough Cardiovascular: Denies: Chest Pain, Palpitations Gastrointestinal: Denies: Abdominal Pain, Constipation, Diarrhea, Nausea, Vomiting Genitourinary: Denies: Dysuria, Hematuria Skin: Reports: No Symptoms - Patient Data Vitals - Most Recent: Last Vital Signs Temp 36.6 C 05/10/19 05:24 Pulse 67 05/10/19 05:24 Resp 16 05/10/19 05:24 BP 158/84 H 05/10/19 05:24 Pulse Ox 96 05/10/19 05:24 Weight - Most Recent: 253 lb I&O - Last 24 Hours: Intake & Output 05/09/19 05/10/19 05/10/19 22:59 06:59 14:59 Intake Total 990 1389 Output Total 700 Balance 990 689 Lab Results Last 24 Hours: Laboratory Results - last 24 hr 05/09/19 05/09/19 Range/Units 16:37 16:37 WBC 9.6 (4.5-12.0) X10-3/uL RBC 4.74 (4.30-5.75) x10(6)uL Hgb 13.9 (13.5-17.8) g/dL Hct 41.7 (30.0-51.3) % MCV 87.9 (80-96) fL MCH 29.3 (27.7-33.6) pg MCHC 33.3 (32.2-35.4) g/dL RDW 11.5 (11.5-15.5) % Plt Count 234 (125-369) X10(3)uL MPV 9.3 (7.4-10.4) fL Neut % (Auto) 66.2 (46-82) % Lymph % (Auto) 24.1 (13-37) % [place] % (Auto) 9.0 (4-12) % Eos % (Auto) 0 L (1.0-5.0) % Baso % (Auto) 1 (0-2) % Neut # (Auto) 6.4 (1.6-8.3) # Lymph # (Auto) 2.3 (0.6-5.0) # [place] # (Auto) 0.9 (0.0-1.3) # Eos # (Auto) 0.0 (0.0-0.8) # Baso # (Auto) 0.0 (0.0-0.2) # Sodium 145 (135-145) mmol/L Potassium 3.3 L (3.5-5.3) mmol/L Chloride 106 (100-110) mmol/L Carbon Dioxide 28 (21-32) mmol/L BUN 13 (7-18) mg/dL Creatinine 1.0 (0.70-1.30) mg/dL Est Cr Clr Drug Dosing 89.22 mL/min Estimated GFR (MDRD) > 60 (>60) BUN/Creatinine Ratio 13.0 (9-20) Glucose 103 (80-116) mg/dL Calcium 9.1 (8.6-10.2) mg/dL Total Bilirubin 0.9 (0.1-1.3) mg/dL AST 30 H D (5-25) IU/L ALT 55 H D (12-36) U/L Alkaline Phosphatase 60 (56-112) IU/L Total Protein 7.4 (6.0-8.0) g/dL Albumin 3.8 (3.5-5.2) g/dL Globulin 3.6 g/dL Albumin/Globulin Ratio 1.1 Med Orders - Current: Current Medications Enoxaparin Sodium (Lovenox) 40 mg SUBCUT Q24H [facility] Last Admin: 05/09/19 17:14 Dose: 40 mg Potassium Chloride/Sodium Chloride (Normal Saline With 20 Meq Kcl) 1,000 mls @ 150 mls/hr IV ASDIRECTED [facility] Last Admin: 05/10/19 02:36 Dose: 150 mls/hr Lactated Ringer's (Ringers, Lactated) 1,000 mls @ 999 mls/hr IV BOLUS ONE Stop: 05/10/19 08:31 Labetalol HCl (Normodyne) 10 mg IVPUSH Q4H PRN; Protocol PRN Reason: Hypertension Last Admin: 05/09/19 18:12 Dose: 10 mg Ondansetron HCl (Zofran) 4 mg IV Q4H PRN PRN Reason: Nausea/Vomiting Sodium Chloride (Saline Flush) 10 ml FLUSH ASDIRECTED PRN PRN Reason: Keep Vein Open Last Admin: 05/09/19 16:54 Dose: 10 ml Discontinued Medications Sodium Chloride (Normal Saline) 1,000 mls @ 150 mls/hr IV ASDIRECTED [facility] Last Admin: 05/09/19 16:56 Dose: 150 mls/hr Sodium Chloride (Normal Saline) 1,000 mls @ 500 mls/hr IV .BOLUS ONE Stop: 05/09/19 19:36 Last Admin: 05/09/19 17:51 Dose: 500 mls/hr - Exam General: Alert, Oriented, Cooperative, No Acute Distress HEENT: No: Scleral Icterus Lungs: Clear to Auscultation, Normal Respiratory Effort Cardiovascular: Regular Rate, Regular Rhythm GI/Abdominal Exam: Normal Bowel Sounds, Soft, Non-Tender, Distended Extremities: No Pedal Edema Skin: Warm, Dry, Intact Psy/Mental Status: Alert, Normal Affect, Normal Mood - Problem List & Annotations (1) Dehydration SNOMED Code(s): 08115119 Code(s): E86.0 - DEHYDRATION Status: Acute Current Visit: No (2) Chronic vomiting SNOMED Code(s): 63911455 Code(s): R11.10 - VOMITING, UNSPECIFIED Status: Acute Current Visit: No (3) Weight loss, non-intentional SNOMED Code(s): 898743758 Code(s): R63.4 - ABNORMAL WEIGHT LOSS Status: Acute Current Visit: No (4) Vomiting alone SNOMED Code(s): 379429351859742 Code(s): R11.11 - VOMITING WITHOUT NAUSEA Status: Acute Current Visit: No Qualifiers: Vomiting type: unspecified Vomiting Intractability: non-intractable Qualified Code(s): R11.11 - Vomiting without nausea (5) Hypokalemia SNOMED Code(s): 05424507 Code(s): E87.6 - HYPOKALEMIA Status: Acute Current Visit: Yes (6) Achalasia of esophagus SNOMED Code(s): 65202757 Code(s): K22.0 - ACHALASIA OF CARDIA Status: Acute Current Visit: Yes (7) Elevated liver enzymes SNOMED Code(s): 910448813 Code(s): R74.8 - ABNORMAL LEVELS OF OTHER SERUM ENZYMES Status: Acute Current Visit: Yes - Problem List Review Problem List Initiated/Reviewed/Updated: Yes - Plan Plan:: 1. Repeat CMP 2. CT abdomen/CXR per Dr. Weinberg's note 3. Continue with NPO, IVF 4. Up ad anneliese <Carlos Archuleta - Last Filed: 05/10/19 08:27> - Patient Data Vitals - Most Recent: Last Vital Signs Temp 98 F 05/10/19 05:24 Pulse 67 05/10/19 05:24 Resp 16 05/10/19 05:24 BP 158/84 H 05/10/19 05:24 Pulse Ox 96 05/10/19 05:24 I&O - Last 24 Hours: Intake & Output 05/09/19 05/10/19 05/10/19 22:59 06:59 14:59 Intake Total 990 1389 Output Total 700 Balance 990 689 Lab Results Last 24 Hours: Laboratory Results - last 24 hr 05/09/19 05/09/19 Range/Units 16:37 16:37 WBC 9.6 (4.5-12.0) X10-3/uL RBC 4.74 (4.30-5.75) x10(6)uL Hgb 13.9 (13.5-17.8) g/dL Hct 41.7 (30.0-51.3) % MCV 87.9 (80-96) fL MCH 29.3 (27.7-33.6) pg MCHC 33.3 (32.2-35.4) g/dL RDW 11.5 (11.5-15.5) % Plt Count 234 (125-369) X10(3)uL MPV 9.3 (7.4-10.4) fL Neut % (Auto) 66.2 (46-82) % Lymph % (Auto) 24.1 (13-37) % [place] % (Auto) 9.0 (4-12) % Eos % (Auto) 0 L (1.0-5.0) % Baso % (Auto) 1 (0-2) % Neut # (Auto) 6.4 (1.6-8.3) # Lymph # (Auto) 2.3 (0.6-5.0) # [place] # (Auto) 0.9 (0.0-1.3) # Eos # (Auto) 0.0 (0.0-0.8) # Baso # (Auto) 0.0 (0.0-0.2) # Sodium 145 (135-145) mmol/L Potassium 3.3 L (3.5-5.3) mmol/L Chloride 106 (100-110) mmol/L Carbon Dioxide 28 (21-32) mmol/L BUN 13 (7-18) mg/dL Creatinine 1.0 (0.70-1.30) mg/dL Est Cr Clr Drug Dosing 89.22 mL/min Estimated GFR (MDRD) > 60 (>60) BUN/Creatinine Ratio 13.0 (9-20) Glucose 103 (80-116) mg/dL Calcium 9.1 (8.6-10.2) mg/dL Total Bilirubin 0.9 (0.1-1.3) mg/dL AST 30 H D (5-25) IU/L ALT 55 H D (12-36) U/L Alkaline Phosphatase 60 (56-112) IU/L Total Protein 7.4 (6.0-8.0) g/dL Albumin 3.8 (3.5-5.2) g/dL Globulin 3.6 g/dL Albumin/Globulin Ratio 1.1 Med Orders - Current: Current Medications Enoxaparin Sodium (Lovenox) 40 mg SUBCUT Q24H [facility] Last Admin: 05/09/19 17:14 Dose: 40 mg Potassium Chloride/Sodium Chloride (Normal Saline With 20 Meq Kcl) 1,000 mls @ 150 mls/hr IV ASDIRECTED [facility] Last Admin: 05/10/19 02:36 Dose: 150 mls/hr Lactated Ringer's (Ringers, Lactated) 1,000 mls @ 999 mls/hr IV BOLUS ONE Stop: 05/10/19 08:31 Labetalol HCl (Normodyne) 10 mg IVPUSH Q4H PRN; Protocol PRN Reason: Hypertension Last Admin: 05/09/19 18:12 Dose: 10 mg Ondansetron HCl (Zofran) 4 mg IV Q4H PRN PRN Reason: Nausea/Vomiting Sodium Chloride (Saline Flush) 10 ml FLUSH ASDIRECTED PRN PRN Reason: Keep Vein Open Last Admin: 05/09/19 16:54 Dose: 10 ml Discontinued Medications Sodium Chloride (Normal Saline) 1,000 mls @ 150 mls/hr IV ASDIRECTED [facility] Last Admin: 05/09/19 16:56 Dose: 150 mls/hr Sodium Chloride (Normal Saline) 1,000 mls @ 500 mls/hr IV .BOLUS ONE Stop: 05/09/19 19:36 Last Admin: 05/09/19 17:51 Dose: 500 mls/hr - My Orders Last 24 Hours: My Active Orders 05/09/19 16:08 Patient Status [ADT] Routine Oxygen Therapy [RC] PRN Up ad Anneliese [RC] ASDIRECTED VTE/DVT Education [RC] Per Unit Routine Vital Signs [RC] Q4H Ondansetron [Zofran] 4 mg IV Q4H PRN Sodium Chloride 0.9% [Saline Flush] 10 ml FLUSH ASDIRECTED PRN Peripheral IV Insertion Adult [OM.PC] Routine Resuscitation Status Routine 05/09/19 16:09 Sequential Compression Device [OM.PC] Per Unit Routine 05/09/19 16:15 Enoxaparin [Lovenox] 40 mg SUBCUT Q24H 05/09/19 17:18 Consult to Physician [CONS] Routine 05/09/19 17:19 Notify Provider Consults [RC] ASDIRECTED 05/09/19 17:31 Labetalol [Normodyne] 10 mg IVPUSH Q4H PRN 05/09/19 19:30 NS + KCl 20mEq/L [Normal Saline with 20 mEq KCl] 1,000 ml IV ASDIRECTED 05/09/19 Dinner Nothing per Oral Now Diet [DIET] 05/10/19 07:25 COMPREHENSIVE METABOLIC PN,CMP [CHEM] Routine - Plan Plan:: I attest I saw this patient and agree with plan and note.
[2019-05-10] MEDS ORDERED: Zolpidem 5 MG Tab PO PRN (09:18)
[2019-05-10] MEDS ORDERED: Pantoprazole 40 MG Vial IVPUSH SCH (09:30)
[2019-05-10] MEDS ORDERED: NS + KCl 20mEq/L 1,000 ML IV SCH (10:00)
--- NOTE | 2019-05-10 10:46 | CT ---
INDICATION: Vomiting, history of surgery for hernia. CT CHEST WITHOUT CONTRAST: Spiral 3.75 mm axial sections were obtained through the chest with sagittal and coronal reconstructions, 05/10/19 - no comparisons. Total exam DLP = 1,196.55 mGy-cm. A moderate sized calcified nodule was noted in the lower pole of the left lobe of the thyroid. Minimal aortic calcifications and brachiocephalic calcifications are noted. Very minimal coronary artery calcifications are seen - the heart is not enlarged. No pericardial effusion was seen. A moderate sized fixed hiatal hernia is suggested with solid material lying within it - probable food bolus. There is a clip noted at the inferior aspect of the hiatal hernia. The wall of the stomach is difficult to assess, since it is not distended. There is gas and some fluid in the stomach, gas in the more distal bowel, along with some probable liquid stool in the colon visualized. Renal cortical scarring is suggested. Fatty liver is noted. Adrenal glands appear to be intact. No definite pancreatic mass was seen. The spleen was unremarkable. A definite active infiltrate or effusion was not identified. In the right upper lobe at the level of the aortic arch, there is a 57 mm maximum diameter oval air-containing thin-walled cystic structure, which may represent a previous abscess site. With the thinness of the wall, the possibility of neoplasia is felt to be remote but possible. No other lesions were identified - no definite active infiltrate or effusion was seen. Mediastinal lymphadenopathy is mild and nonspecific. No mediastinal masses were identified. IMPRESSION: 1. 57 mm cavitary cystic structure in the right upper lobe, most likely the sequelae of previous infection but should be correlated clinically. 2. ASD/ASHD. 3. Fatty liver. 4. Post cholecystectomy. 5. Renal cortical scarring. 6. Moderate sized fixed hiatal hernia, which includes solid material - probable food bolus within it-cannot exclude a partially obstructive process. Report was called to Dr. Weinbegr at 0945 hours on 05/10/19. MTDD
[2019-05-10 11:25] VITALS: BP 162/87
[2019-05-10] MEDS: Labetalol 100 MG/20 ML MDV IVPUSH PRN (11:32)
--- NOTE | 2019-05-10 11:56 | PCM.DCSUM1 ---
Discharge Summary - Hospital Course Free Text/Narrative:: Hospital course-patient was admitted potassium slightly low and liver functions slightly elevated. He was given IV fluids including a bolus. Overnight he had 700 mL out. He was evaluated by our surgeon Dr. Weinberg. We were not able to get a barium swallow with Gastrografin until [address] scan was done that showed hiatal hernia for food. His previous surgeries Dr. Weinberg felt that he should be transferred to [place]. I discussed care with [place] and Dr. Weinberg excepts him. Patient's been nothing by mouth and will use some Protonix for his heartburn. He does have history of hypertension and we are some labetalol when necessary for blood pressure greater than 160/90. He will transfer himself bicarb is I believe he is medically stable. We'll saline lock IV and he 'll remain nothing by mouth. Brief History: 54 year old male presents to the hospital for direct admission following vomiting. He reports that two weeks ago he woke up in the morning and had some vomiting. He had been drinking vodka the night before so he attributed the vomiting to this. It resolved by noon and he was able to eat and drink normally afterwards. This past Thursday (05/07/19) he again woke up and became vomiting whenever he tried to eat or drink anything. He had some alcoholic beverages the night before so thought it was related to that again. However, he has been unable to keep any food or liquids down since that time. He reports that even if he drinks water, he feels like everything goes down normally, but that he is unable to keep it in and immediately vomits it out. He does note that this has happened in the past. He was evaluated by surgery last time and had a aditi fundoplication in October 2015. This resolved his symptoms until two weeks ago. Diagnosis: Stroke: No - Discharge Data Discharge Date: 05/10/19 Discharge Disposition: Home, Self-Care 01 Condition: Good - Discharge Diagnosis/Problem(s) (1) GERD (gastroesophageal reflux disease) SNOMED Code(s): 220977422 ICD Code: K21.9 - GASTRO-ESOPHAGEAL REFLUX DISEASE WITHOUT ESOPHAGITIS Status: Acute Current Visit: Yes - Patient Summary/Data Consults: Consultations 05/09/19 17:18 Consult to Physician [CONS] Routine Consulting Provider: Jim Weinberg Courtesy Call Completed to Consulting Physician: Yes Reason for Consult: Not able to eat ot drink - Patient Instructions Diet: NPO Activity: As Tolerated Driving: May Drive Today Showering/Bathing: May Shower Other/Special Instructions: 1. Transfer to [facility] by patient's own vehicle. 2. When he leaves saline lock IV. 3. Nothing by mouth. 4. Dr. Weinberg receiving. - Discharge Plan Home Medications: Home Meds Allopurinol [Zyloprim] 100 mg PO DAILY 05/08/19 [History] Indomethacin 50 mg PO TID PRN 05/08/19 [History] Lisinopril/Hydrochlorothiazide [Lisinopril-Hctz 20-25 mg Tab] 1 each PO DAILY [History] Omeprazole 20 mg PO DAILY 05/08/19 [History] Ondansetron [Zofran ODT] 4 mg PO Q6H PRN #14 tab.dis 05/08/19 [Rx] Acetaminophen [Tylenol Extra Strength] 1,000 mg PO Q4H PRN 05/09/19 [History] Enoxaparin [Lovenox] 40 mg SUBCUT Q24H syringe 05/10/19 [Rx] Omeprazole 20 mg PO DAILY PRN 05/10/19 [History] Patient Handouts: Laparoscopic Aditi Fundoplication, Care After, Laparoscopic Aditi Fundoplication - Discharge Summary/Plan Comment DC Time >30 min.: No - Patient Data Vitals - Most Recent: Last Vital Signs Temp 98.1 F 05/10/19 11:15 Pulse 52 L 05/10/19 11:15 Resp 18 05/10/19 11:15 BP 162/87 H 05/10/19 11:15 Pulse Ox 98 05/10/19 11:15 Weight - Most Recent: 253 lb I&O - Last 24 hours: Intake & Output 05/09/19 05/10/19 05/10/19 22:59 06:59 14:59 Intake Total 990 1389 Output Total 700 300 Balance 990 689 -300 Lab Results - Last 24 hrs: Laboratory Results - last 24 hr 05/09/19 05/09/19 05/10/19 Range/Units 16:37 16:37 10:55 WBC 9.6 (4.5-12.0) X10-3/uL RBC 4.74 (4.30-5.75) x10(6)uL Hgb 13.9 (13.5-17.8) g/dL Hct 41.7 (30.0-51.3) % MCV 87.9 (80-96) fL MCH 29.3 (27.7-33.6) pg MCHC 33.3 (32.2-35.4) g/dL RDW 11.5 (11.5-15.5) % Plt Count 234 (125-369) X10(3)uL MPV 9.3 (7.4-10.4) fL Neut % (Auto) 66.2 (46-82) % Lymph % (Auto) 24.1 (13-37) % [place] % (Auto) 9.0 (4-12) % Eos % (Auto) 0 L (1.0-5.0) % Baso % (Auto) 1 (0-2) % Neut # (Auto) 6.4 (1.6-8.3) # Lymph # (Auto) 2.3 (0.6-5.0) # [place] # (Auto) 0.9 (0.0-1.3) # Eos # (Auto) 0.0 (0.0-0.8) # Baso # (Auto) 0.0 (0.0-0.2) # Sodium 145 145 (135-145) mmol/L Potassium 3.3 L 3.8 (3.5-5.3) mmol/L Chloride 106 108 (100-110) mmol/L Carbon Dioxide 28 27 (21-32) mmol/L BUN 13 10 (7-18) mg/dL Creatinine 1.0 0.9 (0.70-1.30) mg/dL Est Cr Clr Drug Dosing 89.22 99.14 mL/min Estimated GFR (MDRD) > 60 > 60 (>60) BUN/Creatinine Ratio 13.0 11.1 (9-20) Glucose 103 100 (80-116) mg/dL Calcium 9.1 8.7 (8.6-10.2) mg/dL Total Bilirubin 0.9 0.9 (0.1-1.3) mg/dL AST 30 H D 34 H D (5-25) IU/L ALT 55 H D 54 H (12-36) U/L Alkaline Phosphatase 60 57 (56-112) IU/L Total Protein 7.4 7.2 (6.0-8.0) g/dL Albumin 3.8 3.6 (3.5-5.2) g/dL Globulin 3.6 3.6 g/dL Albumin/Globulin Ratio 1.1 1.0 Med Orders - Current: Current Medications Enoxaparin Sodium (Lovenox) 40 mg SUBCUT Q24H [facility] Last Admin: 05/09/19 17:14 Dose: 40 mg Potassium Chloride/Sodium Chloride (Normal Saline With 20 Meq Kcl) 1,000 mls @ 150 mls/hr IV Q6H [facility] Last Admin: 05/10/19 10:26 Dose: 150 mls/hr Labetalol HCl (Normodyne) 10 mg IVPUSH Q4H PRN; Protocol PRN Reason: Hypertension Last Admin: 05/10/19 11:32 Dose: 10 mg Ondansetron HCl (Zofran) 4 mg IV Q4H PRN PRN Reason: Nausea/Vomiting Pantoprazole Sodium (Protonix Iv) 40 mg IVPUSH Q24H [facility] Last Admin: 05/10/19 09:40 Dose: 40 mg Sodium Chloride (Saline Flush) 10 ml FLUSH ASDIRECTED PRN PRN Reason: Keep Vein Open Last Admin: 05/09/19 16:54 Dose: 10 ml Zolpidem Tartrate (Ambien) 5 mg PO BEDTIME PRN PRN Reason: Insomnia Discontinued Medications Sodium Chloride (Normal Saline) 1,000 mls @ 150 mls/hr IV ASDIRECTED [facility] Last Admin: 05/09/19 16:56 Dose: 150 mls/hr Sodium Chloride (Normal Saline) 1,000 mls @ 500 mls/hr IV .BOLUS ONE Stop: 05/09/19 19:36 Last Admin: 05/09/19 17:51 Dose: 500 mls/hr Potassium Chloride/Sodium Chloride (Normal Saline With 20 Meq Kcl) 1,000 mls @ 150 mls/hr IV ASDIRECTED MEGHA Stop: 05/10/19 09:59 Last Admin: 05/10/19 02:36 Dose: 150 mls/hr Lactated Ringer's (Ringers, Lactated) 1,000 mls @ 999 mls/hr IV BOLUS ONE Stop: 05/10/19 08:31 Last Admin: 05/10/19 09:07 Dose: 999 mls/hr
== END 2019-05-10 12:20 | disposition home or self-care (01) ==
LOC: FB.MS 15:01
PROVIDERS: ADMIT Family Medicine; ATTEND Family Medicine
DX: R11.11 Vomiting without nausea (principal); E86.0 Dehydration; K21.9 Gastro-esophageal reflux disease without esophagitis; I10 Essential (primary) hypertension; M19.90 Unspecified osteoarthritis, unspecified site; R63.4 Abnormal weight loss; Z79.899 Other long term (current) drug therapy; Z98.890 Other specified postprocedural states
CPT/HCPCS: 36415; 71250; 80053; 85025; 96361; 96372; 96375; 96376; C9113; G0378; G0379; J1650; J3480; J3490; J7030; J7120

== ENCOUNTER 2024-09-19 08:59 | Emergency (ER) | payer SELFPAY ==
[2024-09-19] MEDS ORDERED: Sodium Chloride 0.9% 10 ML Syringe FLUSH PRN (09:22)
[2024-09-19] MEDS ORDERED: Ketorolac 15 MG/ML SDV IVPUSH ONE (09:22)
[2024-09-19 09:36] LABS: BASOPHILS PERCENT AUTO 0.2 % (0.3-3.8); EOSINOPHILS ABSOLUTE AUTO 0.1 x10-3/uL (0.0-0.6); EOSINOPHILS PERCENT AUTO 1.3 % (0.1-6.8); HEMATOCRIT 49.8 % (38.3-50.1); HEMOGLOBIN 17.3 g/dL (12.9-17.7); LYMPHOCYTES ABSOLUTE AUTO 0.5 x10-3/uL (0.5-4.5); LYMPHOCYTES PERCENT AUTO 7.8 % (15.8-45.3); MEAN CORPUSCULAR HEMOGLOBIN 31.5 pg (27.0-33.3); MEAN CORPUSCULAR HGB CONC 34.7 g/dL (28.7-35.3); MEAN CORPUSCULAR VOLUME 90.8 fL (80.8-98.7); MEAN PLATELET VOLUME 9.2 fL (6.7-11.0); MONOCYTES ABSOLUTE AUTO 0.5 x10-3/uL (0.0-1.2); MONOCYTES PERCENT AUTO 8.3 % (5.5-15.2); NEUTROPHILS ABSOLUTE AUTO 5.4 x10-3/uL (1.7-6.9); NEUTROPHILS PERCENT AUTO 82.4 % (40.3-71.8); PLATELET COUNT,PLT 179 x10(3)uL (117-477); RED BLOOD CELL COUNT 5.48 x10(6)uL (3.90-5.90); RED CELL DISTRIBUTION WIDTH 12.7 % (12.4-15.0); WHITE BLOOD CELL COUNT,WBC 6.5 x10-3/uL (3.2-10.1)
[2024-09-19 09:41] LABS: BLOOD UREA NITROGEN,BUN 10 mg/dL (7-18); BUN/CREATININE RATIO 12.5 (9-20); CALCIUM 8.7 mg/dL (8.6-10.2); CARBON DIOXIDE,CO2 29 mmol/L (21-32); CHLORIDE,CL 106 mmol/L (100-110); CREATININE 0.8 mg/dL (0.70-1.30); ESTIMATED GFR 103 mL/min (>60); GLUCOSE RANDOM 118 mg/dL (80-116); POTASSIUM,K 3.3 mmol/L (3.5-5.3); SODIUM,NA 143 mmol/L (135-145)
[2024-09-19 09:46] LABS: A/G RATIO 0.9; ALANINE AMINOTRANSFERASE,ALT 40 U/L (12-36); ALBUMIN 3.3 g/dL (3.5-5.2); ALKALINE PHOSPHATASE 77 IU/L (56-112); ASPARTATE AMNIOTRANSFERASE,AST 53 IU/L (5-25); BILIRUBIN TOTAL 0.8 mg/dL (0.1-1.3); PROTEIN TOTAL,TP 7.2 g/dL (6.0-8.0)
[2024-09-19 09:49] LABS: LACTIC ACID 0.9 mmol/L (0.4-2.0)
[2024-09-19 10:13] LABS: INFLUENZA A NAA NEGATIVE (NEGATIVE); INFLUENZA B NAA NEGATIVE (NEGATIVE); RESPIRATORY SYNCYTIAL VIR NAA NEGATIVE (NEGATIVE)
[2024-09-19 10:14] LABS: CORONAVIRUS COVID-19 NAA NEGATIVE (NEGATIVE)
[2024-09-19] MEDS: Ondansetron 4 MG/2 ML SDV IVPUSH ONE (11:47)
[2024-09-19] MEDS: Ketorolac 30 MG/ML SDV IVPUSH ONE (11:47)
[2024-09-19] MEDS: Sodium Chloride 0.9% 1,000 ML IV ONE (11:47)
[2024-09-19 11:52] VITALS: BP 138/86; PULSE 58
== END 2024-09-19 14:02 | disposition home or self-care (01) ==
LOC: FB.ED 08:59
DX: K52.9 Noninfective gastroenteritis and colitis, unspecified (principal); E86.0 Dehydration; E87.6 Hypokalemia; R74.8 Abnormal levels of other serum enzymes; I10 Essential (primary) hypertension; Z90.49 Acquired absence of other specified parts of digestive tract; Z79.899 Other long term (current) drug therapy
CPT/HCPCS: 0241U; 36415; 80053; 83605; 84484; 85025; 86140; 93005; 93010; 96361; 96374; 96375; 99284; 99284-25; J1885; J2405; J7030